=== PATIENT | female | born 1985 | race African-American/Black ===

== ENCOUNTER 2017-05-15 23:33 | Emergency (ER) | payer MEDICAID ==
[~2017-05-15] VITALS: Ht 162.6 cm; Wt 74.0 kg
[2017-05-16] MEDS ORDERED: SODIUM CHLORIDE 0.9% 1,000 ML IV ONE (03:07)
[2017-05-16 03:31] LABS: BASOPHILS % 0.3 % (0.0-2.0); EOSINOPHILS % 2.3 % (0.0-5.0); HEMATOCRIT. 39.2 % (36.0-48.0); HEMOGLOBIN. 13.3 g/dL (12.0-16.0); LYMPHOCYTES % 31.6 % (20.0-50.0); MEAN CORPUSCULAR HEMOGLOBIN 31.7 pg (28.0-32.0); MEAN CORPUSCULAR VOLUME 93.3 fL (81.0-99.0); MEAN PLATELET VOLUME 8.6 fl (7.4-10.4); MONOCYTES % 7.5 % (2.0-8.0); NEUTROPHILS % 58.3 % (40.0-76.0); PLATELET 232 x1000/uL (130-400); RED CELL DISTRIBUTION WIDTH 12.8 % (11.6-14.6)
[2017-05-16 03:33] LABS: CLARITY URINE CLOUDY (CLEAR); COLOR URINE DARK YELLOW (YELLOW); GLUCOSE URINE NEGATIVE (NEGATIVE); KETONES URINE TRACE (NEGATIVE); LEUKOCYTE ESTERASE URINE 2+ (NEGATIVE); NITRITE URINE NEGATIVE (NEGATIVE); OCCULT BLOOD URINE 3+ (NEGATIVE); PH URINE 5.5 (4.5-8.0); PROTEIN URINE 1+ (NEGATIVE); SPECIFIC GRAVITY URINE 1.036 (1.005-1.030)
[2017-05-16 03:52] LABS: CARBON DIOXIDE 26 mEq/L (21-32); CHLORIDE 102 mEq/L (98-107)
[2017-05-16 04:02] LABS: B-HCG QUANTITATIVE 91518 mIU/mL (<3)
[2017-05-16 06:00] VITALS: BP 117/69
== END 2017-05-16 07:15 | disposition home or self-care (01) ==
LOC: ER 05-16 03:48
DX: O20.0 Threatened abortion (principal); O03.88 Urinary tract infection following complete or unspecified spontaneous abortion; N39.0 Urinary tract infection, site not specified; O99.511 Diseases of the respiratory system complicating pregnancy, first trimester; J45.909 Unspecified asthma, uncomplicated; F12.10 Cannabis abuse, uncomplicated; Z3A.01 Less than 8 weeks gestation of pregnancy
CPT/HCPCS: 36415; 76801; 76817; 80048; 81001; 84702; 85025; 86850; 86900; 86901; 87086; 96360; 99285; J7030; Z7610

== ENCOUNTER 2017-06-26 10:36 | Emergency (ER) | payer MEDICAID ==
[~2017-06-26] VITALS: Ht 160 cm; Wt 75.0 kg
[2017-06-26] MEDS ORDERED: ACETAMINOPHEN 325MG TABLET PO ONE (15:30)
[2017-06-26 15:59] LABS: CLARITY URINE CLOUDY (CLEAR); COLOR URINE YELLOW (YELLOW); GLUCOSE URINE NEGATIVE (NEGATIVE); KETONES URINE NEGATIVE (NEGATIVE); LEUKOCYTE ESTERASE URINE 3+ (NEGATIVE); NITRITE URINE NEGATIVE (NEGATIVE); OCCULT BLOOD URINE NEGATIVE (NEGATIVE); PH URINE 5.5 (4.5-8.0); PROTEIN URINE NEGATIVE (NEGATIVE); SPECIFIC GRAVITY URINE 1.026 (1.005-1.030); UROBILINOGEN URINE 0.2 E.U./dL (0.2-1.0)
[2017-06-26 16:43] VITALS: BP 101/72
== END 2017-06-26 19:08 | disposition home or self-care (01) ==
LOC: ER 13:56
DX: O02.1 Missed abortion (principal); O23.41 Unspecified infection of urinary tract in pregnancy, first trimester; O98.811 Other maternal infectious and parasitic diseases complicating pregnancy, first trimester; O26.891 Other specified pregnancy related conditions, first trimester; J45.909 Unspecified asthma, uncomplicated; Z3A.08 8 weeks gestation of pregnancy
CPT/HCPCS: 36415; 76801; 76817; 81001; 81025; 84702; 86850; 86900; 86901; 87210; 99285; Z7610; 87491; 87591

== ENCOUNTER 2023-07-05 07:33 | Emergency (ER) | payer MEDICAID ==
[~2023-07-05] VITALS: Ht 170.2 cm; Wt 81.0 kg
[2023-07-05 07:39] VITALS: BP 134/88; PULSE 99; RESP 20; TEMP 98.9; O2SAT 100
[2023-07-05] MEDS ORDERED: TOPUD MT (09:05)
== END 2023-07-05 09:15 | disposition home or self-care (01) ==
LOC: ER 07:33
DX: U07.1 COVID-19 (principal); F12.10 Cannabis abuse, uncomplicated; J45.909 Unspecified asthma, uncomplicated; R51.9 Headache, unspecified; R05.9 Cough, unspecified
CPT/HCPCS: 99283; 87426; C9803